=== PATIENT | male | born 1945 | race Caucasian/White ===

== ENCOUNTER 2018-02-09 08:27 | Emergency (ER) | payer OTHER ==
[2018-02-09 08:47] VITALS: BMI 29.9
--- NOTE | 2018-02-09 09:15 | PDOC ---
Attending Attestation - Physicial Exam PE: 02/09/18 11:02 GENERAL: The patient is awake, alert, and fully oriented, Nontoxic - in no acute distress. HEAD: Normocephalic, atraumatic. EYES: Extraocular movements intact, sclera anicteric, conjunctiva clear. ENT: Normal voice, moist mucous membranes. NECK: Normal range of motion, supple without lymphadenopathy, JVD, or masses. LUNGS: Breath sounds equal, clear to auscultation bilaterally. No wheezes, no crackles, no rales. HEART: Regular rate and rhythm, normal S1 and S2 without murmur, rub or gallop. ABDOMEN: Soft, nontender, normoactive bowel sounds. No guarding, no rebound. No masses. EXTREMITIES: Normal range of motion, no edema. No clubbing or cyanosis. No cords , erythema, or tenderness. NEUROLOGICAL: Fully Oriented, Alert, Normal Mood/Affect, Motor Strength 5/5. No facial asymmetry, Normal speech. SKIN: Warm, Dry, normal turgor, no rashes or lesions noted. - Medical Decision Making 02/09/18 11:03 Documentation prepared by Nancy Davey, acting as medical detail representative for Farida Gannon MD <Nancy Davey - Last Filed: 02/09/18 11:02> - Resident Resident Name: Harry Bolanos - HPI HPI: 02/09/18 10:58 72 y/o male with h/o afib called into ed for elevated INR, pt with no current complaints, pt takes coumadin 2.5mg alternating with 1.25mg. Pt last dose was 1.25mg taken at 12 noon yesterday. PT denies any c/o rectal bleeding, bruising, pt anxious to go home 02/09/18 11:00 02/09/18 14:02 - Physicial Exam PE: 02/09/18 11:01 Last Vital Signs Temp Pulse Resp BP Pulse Ox 98.2 F 72 17 123/73 98 02/09/18 10:41 02/09/18 10:41 02/09/18 10:41 02/09/18 10:41 02/09/18 10:41 - Medical Decision Making 02/09/18 11:03 Pt had repeat INR remains elevated, will hold INR dose until Sunday. Pt o call PCP on sunday and have INR rechecked before resuming dose.PT's coumadin dose may need to be adjusted , pt reports recent weight loss and feels like the dose is to high. Dr. Nathan covering for pt's pcp agrees with plan to hold coumadin dose or now, will not reverse. PT is aware to return to ed for rectal bleeding, hematuria, hempotysis or as needed. Pt left ed in stable condition <Farida Gannon - Last Filed: 02/09/18 14:02>
[2018-02-09 09:46] LABS: BASO % 0.9 % (0-2.0); EOS % 1.7 % (0-4.5); HEMATOCRIT 34.6 % (35.4-49); HEMOGLOBIN 11.4 GM/dL (11.7-16.9); LYMPH % 17.7 % (8-40); MCH 28.7 pg (25.7-33.7); MCHC 32.8 g/dl (32.0-35.9); MEAN CELL VOLUME 87.3 fl (80-96); MEAN PLT VOLUME 7.8 fl (7.5-11.1); MONO % 7.4 % (3.8-10.2); NEUT % 72.3 % (42.8-82.8); PLATELET COUNT 296 K/MM3 (134-434); RBC 3.96 M/mm3 (4.00-5.60); RDW 14.6 % (11.9-15.9); WHITE BLOOD COUNT 6.4 K/mm3 (4.0-10.0)
--- NOTE | 2018-02-09 09:56 | PDOC ---
History of Present Illness - General Chief Complaint: Revisit,Radiology Variance Stated Complaint: PCP SENT Time Seen by Provider: 02/09/18 09:10 History Source: Patient Exam Limitations: No Limitations - History of Present Illness Initial Comments: 02/09/18 09:48 Patient is a 72M with history of afib, DM here today complaining of lab variance. He reports that his INR was 6.4. His last dose of warfarin was yesterday at lunch, he has not taken any today. He denies bloody stools, melena , vomiting, bloody stools. He denies chest pain, shortness of breath, nausea, fevers, chills. He states he has been eating a little less lately and thinks that may be why his levels are elevated. Past History - Past Medical History Allergies/Adverse Reactions: Allergies Allergy/AdvReac Type Severity Reaction Status Date / Time No Known Allergies Allergy Verified 02/09/18 08:47 Home Medications: Ambulatory Orders Dronedarone HCl [Multaq -] 400 mg PO BID 02/09/18 Fenofibrate Nanocrystallized [Tricor] 145 mg PO DAILY 02/09/18 Glimepiride 1 mg PO DAILY 02/09/18 Levothyroxine [Synthroid -] 175 mcg PO DAILY 02/09/18 Lisinopril 10 mg PO DAILY 02/09/18 Warfarin Na [Coumadin] 2.5 mg PO ASDIR 02/09/18 Warfarin Sodium 1.5 mg PO ASDIR 02/09/18 Cancer: Yes (thyroid) Cardiac Disorders: Yes (a fib) COPD: No Diabetes: No HTN: Yes - Suicide/Smoking/Psychosocial Hx Smoking History: Never smoked Review of Systems - Review of Systems Comments:: 02/09/18 09:56 GENERAL/CONSTITUTIONAL: No fever or chills. No weakness. HEAD, EYES, EARS, NOSE AND THROAT: No change in vision. No sore throat. CARDIOVASCULAR: No chest pain or shortness of breath RESPIRATORY: No cough, wheezing, or hemoptysis. GASTROINTESTINAL: No nausea, vomiting, diarrhea or constipation. GENITOURINARY: No dysuria, frequency, or change in urination. SKIN: No rash NEUROLOGIC: No headache, vertigo, loss of consciousness, or change in strength/ sensation. HEMATOLOGIC/LYMPHATIC: No anemia, easy bleeding, or history of blood clots. ALLERGIC/IMMUNOLOGIC: No hives or skin allergy. *Physical Exam - Vital Signs Last Vital Signs Temp Pulse Resp BP Pulse Ox 97.7 F 89 18 114/59 99 02/09/18 08:43 02/09/18 08:43 02/09/18 08:43 02/09/18 08:43 02/09/18 08:43 - Physical Exam Comments: 02/09/18 09:57 GENERAL: Awake, alert, and fully oriented, in no acute distress HEAD: No signs of trauma, normocephalic, atraumatic EYES: PERRLA, EOMI, sclera anicteric, conjunctiva clear ENT: Auricles normal inspection, hearing grossly normal, nares patent, oropharynx clear without exudates. Moist mucosa NECK: Normal ROM, supple, no lymphadenopathy, JVD, or masses LUNGS: No distress, speaks full sentences, clear to auscultation bilaterally HEART: Regular rate and rhythm, normal S1 and S2, no murmurs, rubs or gallops, peripheral pulses normal and equal bilaterally. ABDOMEN: Soft, nontender, normoactive bowel sounds. No guarding, no rebound. No masses EXTREMITIES: Normal inspection, Normal range of motion, no edema. No clubbing or cyanosis. NEUROLOGICAL: Cranial nerves II through XII grossly intact. Normal speech, normal gait, no focal sensorimotor deficits SKIN: Warm, Dry, normal turgor, no rashes or lesions noted. ED Treatment Course - LABORATORY CBC & Chemistry Diagram: 02/09/18 09:10 02/09/18 09:10 Medical Decision Making - Medical Decision Making 02/09/18 09:58 Patient is a 72M with history of afib and DM here today with elevated INR. Vital signs stable and normal. Will check INR, CBC, CMP. Likely will instruct patient to withhold next 2 warfarin doses and follow up with PCP. 02/09/18 10:23 Laboratory Tests 02/09/18 02/09/18 02/09/18 09:10 09:10 09:10 WBC 6.4 Hgb 11.4 L Hct 34.6 L Plt Count 296 INR 6.14 H* Creatinine 1.8 H Random Glucose 232 H CBC normal. INR elevated to 6.14, Cr 1.8. Glucose elevated. Do not have prior Cr to compare. Suspect this is chronic, patient does not appear dry. INR is 5-[address] Nathan from PCP's office notified of INR and CR levels. Agrees with plans to discharge with instructions to hold warfarin for next two days. Will follow up Sunday with Dr David. *DC/Admit/Observation/Transfer Diagnosis at time of Disposition: Elevated INR - Discharge Dispostion Disposition: HOME Condition at time of disposition: Good Admit: No - Referrals Referrals: Luis Felipe David MD [Primary Care Provider] - - Patient Instructions Additional Instructions: Your INR was elevated to 6.14 today. Please do not take your warfarin today and tomorrow and call Dr David to follow up. Please return if you have any new, worsening or concerning symptoms, especially any signs that you are bleeding such as blood in your stool or vomit. - Post Discharge Activity
[2018-02-09 10:06] LABS: PROTHROMBIN TIME (PATIENT) 69.4 SEC (9.98-11.88)
[2018-02-09 10:12] LABS: ANION GAP 12 (8-16); BILIRUBIN,TOTAL 0.7 mg/dL (0.2-1.0); BLOOD UREA NITROGEN 15 mg/dL (7-18); CALCIUM 7.9 mg/dL (8.5-10.1); CHLORIDE 107 mmol/L (98-107); CO2 22 mmol/L (21-32); CREATININE 1.8 mg/dL (0.7-1.3); GLUCOSE,RANDOM 232 mg/dL (74-106); POTASSIUM 4.1 mmol/L (3.5-5.1); SGOT/AST 13 U/L (15-37); SGPT/ALT 12 U/L (12-78); SODIUM 141 mmol/L (136-145); TOT PROT 6.4 g/dl (6.4-8.2)
[2018-02-09 10:13] LABS: ALK PHOS 71 U/L (45-117)
[2018-02-09 10:17] LABS: INR 6.14 (0.82-1.09)
[2018-02-09 10:43] VITALS: BP 123/73; PULSE 72; TEMP 98.2
== END 2018-02-09 10:42 | disposition home or self-care (01) ==
LOC: JER 08:27
DX: D68.8 Other specified coagulation defects (principal); I48.91 Unspecified atrial fibrillation; Z79.01 Long term (current) use of anticoagulants; E11.9 Type 2 diabetes mellitus without complications; Z79.84 Long term (current) use of oral hypoglycemic drugs; I10 Essential (primary) hypertension; Z85.850 Personal history of malignant neoplasm of thyroid
CPT/HCPCS: 36415; 80053; 85025; 85610; 99282-25

== ENCOUNTER 2020-09-01 07:34 | Emergency (ER) | payer OTHER ==
--- OUTSIDE RECORDS SUMMARY | 2020-09-01 07:51 | XMS ---
:1945 Author Organization [facility] Support Name Relationship Address Phone RE Unavailable Unavailable Unavailable [employer] [address] [place] [address] Re-disclosure Warning The records that you are about to access may contain information from federally- assisted alcohol or drug abuse programs. If such information is present, then the following federally mandated warning applies: This information has been disclosed to you from records protected by federal confidentiality rules (42 CFR part 2). The federal rules prohibit you from making any further disclosure of this information unless further disclosure is expressly permitted by the written consent of the person to whom it pertains or as otherwise permitted by 42 CFR part 2. A general authorization for the release of medical or other information is NOT sufficient for this purpose. The Federal rules restrict any use of the information to criminally investigate or prosecute any alcohol or drug abuse patient.The records that you are about to access may contain highly sensitive health information, the redisclosure of which is protected by Article 27-F of the [facility] Public Health law. If you continue you may haveaccess to information: Regarding HIV / AIDS; Provided by facilities licensed or operated by the [facility] Office of Mental Health; or Provided by the [facility] Office for People With Developmental Disabilities. If such information is present, then the following [facility] mandated warning applies: This information has been disclosed to you from confidential records which are protected by state law. State law prohibits you from making any further disclosure of this information without the specific written consent of the person to whom it pertains, or as otherwise permitted by law. Any unauthorized further disclosure in violation of state law may result in a fine or nursing home sentence or both. A general authorization for the release of medical or other information is NOT sufficient authorization for further disclosure. Insurance Providers Payer name Policy type Policy ID Covered Covered republican's Policy P ellie / Coverage republican ID relationship to [facility] ormation type cook [place] [id number] [facility] (MEDICARE)
[2020-09-01 07:57] VITALS: TEMP 97.9; BMI 30.6
[2020-09-01] MEDS ORDERED: ACETAMINOPHEN 500 MG TABLET (FP) PO ONE (08:38)
[2020-09-01] MEDS ORDERED: ACETAMINOPHEN 500 MG TABLET (FP) ONE (08:51)
--- NOTE | 2020-09-01 09:13 | PDOC ---
Documentation entered by Stepan Rodriguez SCRIBE, acting as scribe for Sathya Guardado MD. Sathya Guardado MD: This documentation has been prepared by the Michael sidhu Alexis, SCRIBE, under my direction and personally reviewed by me in its entirety. I confirm that the documentation accurately reflects all work, treatment, procedures, and medical decision making performed by me. History of Present Illness - General Chief Complaint: Injury Stated Complaint: KNEE PAIN Time Seen by Provider: 09/01/20 07:55 History Source: Patient Exam Limitations: No Limitations - History of Present Illness Initial Comments: 09/01/20 08:40 The patient is a 75 year old male with a significant past medical history of Afib (on coumadin, last INR: 2.1, 2 weeks ago), prior thyroid cancer, DM, HTN, and left lower extremity lymphedema who presents to the emergency department for evaluation of left knee pain and swelling. The patient reports that he may have twisted his knee when he sat down in a chair yesterday. He reports a sharp pulling pain in his knee associated with swelling that started yesterday. He notes chronic pain in his L knee. Was told he had severe arthritis and needed a knee replacement. However, the pain acutely worsened yesterday. Pt states that he fell yesterday because of the pain in his knee. Denies headstrike/LOC. States he landed on the couch with his arms outstretched. He reports having to crawl to get to bed after falling. Pt has been ambulatory with walker today. Deines head/neck trauma. Denies LOC. The patient denies chest/abdominal/back pain, cough, and shortness of breath. Denies fever, chills, nausea, vomiting, and/or any GI symptoms. Denies any symptoms. Denies any other symptoms. Allergies: house dust, mold, tree and shrub Social Hx: None reported Surgical Hx: None reported PCP: Dr. David Ortho: Dr. Tarango Cardio: Dr. Hutchison Past History - Medical History Allergies/Adverse Reactions: Allergies Allergy/AdvReac Type Severity Reaction Status Date / Time house dust Allergy Mild Itching Verified 09/01/20 07:50 mold Allergy Mild Itching Verified 09/01/20 07:50 tree and shrub pollen Allergy Mild Itching Verified 09/01/20 07:50 Home Medications: Ambulatory Orders Dronedarone HCl [Multaq -] 400 mg PO BID 02/09/18 Fenofibrate Nanocrystallized [Tricor] 145 mg PO DAILY 02/09/18 Glimepiride 1 mg PO DAILY 02/09/18 Levothyroxine [Synthroid -] 175 mcg PO DAILY 02/09/18 Lisinopril 10 mg PO DAILY 02/09/18 Warfarin Na [Coumadin] 2.5 mg PO ASDIR 02/09/18 Warfarin Sodium 1.5 mg PO ASDIR 02/09/18 Cancer: Yes (thyroid) Cardiac Disorders: Yes (a fib) COPD: No Diabetes: Yes HTN: Yes - Psycho-Social/Smoking History Smoking History: Never smoked Have you smoked in the past 12 months: No Information on smoking cessation initiated: No - Substance Abuse Hx (Audit-C & DAST Scrn) How often the patient has a drink containing alcohol: Never Score: In Men: 4 or > Positive; In Women: 3 or > Positive: 0 Screen Result (Pos requires Nsg. Audit-10AR): Negative In the last yr the pt used illegal drug/Rx for NonMed reason: No Score: Yes response is considered Positive: 0 Screen Result (Positive result requires Nsg. DAST-10): Negative Review of Systems - Review of Systems Able to Perform ROS?: Yes Comments:: 09/01/20 08:41 "GENERAL/CONSTITUTIONAL: No fever or chills. No weakness. HEAD, EYES, EARS, NOSE AND THROAT: No change in vision. No ear pain or discharge. No sore throat. CARDIOVASCULAR: No chest pain, no shortness of breath, no loss of consciousness RESPIRATORY: No cough, wheezing, or hemoptysis. GASTROINTESTINAL: No nausea, vomiting, diarrhea or constipation. GENITOURINARY: No dysuria, frequency, or change in urination. MUSCULOSKELETAL: +left knee pain and swelling. No muscle swelling or pain. No neck or back pain. SKIN: No rash NEUROLOGIC: No vertigo, no change in strength/sensation. ENDOCRINE: No increased thirst. No abnormal weight change. HEMATOLOGIC/LYMPHATIC: No anemia, easy bleeding, or history of blood clots. ALLERGIC/IMMUNOLOGIC: No hives or skin allergy." All Other Systems: Reviewed and Negative *Physical Exam - Vital Signs Last Vital Signs Temp Pulse Resp BP Pulse Ox 97.9 F 82 16 139/76 100 09/01/20 07:35 09/01/20 07:35 09/01/20 07:35 09/01/20 07:35 09/01/20 07:35 - Physical Exam 09/01/20 08:00 "GENERAL: Awake, alert, and fully oriented, in no acute distress. HEAD: No signs of trauma EYES: PERRLA, EOMI, sclera anicteric, conjunctiva clear ENT: Auricles normal inspection, hearing grossly normal, nares patent, oropharynx clear without exudates. Moist mucosa NECK: Nontender, no stepoffs, Normal ROM, supple, no lymphadenopathy, JVD, or masses LUNGS: Breath sounds equal, clear to auscultation bilaterally. No wheezes, and no crackles HEART: Regular rate and rhythm, normal S1 and S2, no murmurs, rubs or gallops ABDOMEN: Soft, nontender, normoactive bowel sounds. No guarding, no rebound. No masses EXTREMITIES: + L knee with effusion, no discoloration, full ROM NEUROLOGICAL: Cranial nerves II through XII intact. 5/5 strength and sensation in all extremities, Normal speech, normal gait, normal cerebellar function SKIN: Warm, Dry, normal turgor, no rashes or lesions noted." Medical Decision Making - Medical Decision Making 09/01/20 09:16 75 M with atraumatic L knee pain and swelling. Suspect arthritis vs bursitis vs gout/pseudogout. Less likely septic arthritis as pt with no infectious symptoms. Also consider hemarthrosis as pt is on coumadin. - INR - XR - arthrocentesis 09/01/20 10:14 XR unremarkable other than OA and suprapatellar effusion Attempted arthrocentesis x 2 unsuccessfully Pt reports some improvement with tylenol Likely arthritis/bursitis. INR in normal range, unlikely hemarthrosis. Will give 1 dose decadron IM and reassess 09/01/20 11:41 Pt reassessed - pain much improved. Pt able to ambulate without issue. Pt is well appearing, with normal vitals. Clinically stable for DC at this time. I discussed the physical exam findings, ancillary test results and final diagno ses with the patient. I answered all of the patient's questions. The patient was satisfied with the care received and felt comfortable with the discharge plan and treatment plan. The patient agrees to follow up with the primary care physician within 24-72 hours. Discharge - Discharge Information Problems reviewed: Yes Clinical Impression/Diagnosis: Knee pain - Follow up/Referral Referrals: Luis Felipe David MD [Primary Care Provider] - Sen Avila DO [Staff Physician] - Teodoro Hernandez DO [Staff Physician] - Alvin Tarango MD [Staff Physician] - Sathya Levi MD [Staff Physician] - - Patient Discharge Instructions Patient Printed Discharge Instructions: DI for Knee Pain Additional Instructions: Follow up with an orthopedic surgeon within 1 week. Call the numbers provided to make an appointment. Keep your knee elevated and avoid weight bearing when possible. Apply ice to reduce swelling. If you experience worsening pain, swelling, redness, fevers, or any other concerning symptoms, return to the ER immediately. - Post Discharge Activity
[2020-09-01 09:28] LABS: INR 2.44 (0.83-1.09)
[2020-09-01] MEDS ORDERED: LIDOCAINE HCL 1%, 10 MG/ML (50 mL VIAL) SQ ONE (09:43)
[2020-09-01] MEDS ORDERED: DEXAMETHASONE SOD PHOSPHATE 10 MG/1 ML VIAL IM ONE (10:15)
[2020-09-01] MEDS ORDERED: DEXAMETHASONE SOD PHOSPHATE 10 MG/1 ML VIAL ONE (10:25)
[2020-09-01 12:03] VITALS: BP 133/75; PULSE 79
== END 2020-09-01 12:02 | disposition home or self-care (01) ==
LOC: JER 07:34
PROC: 3E023NZ Introduction of Analgesics, Hypnotics, Sedatives into Muscle, Percutaneous Approach (ICD-10-PCS; principal; 2020-09-01)
DX: M25.562 Pain in left knee (principal)
CPT/HCPCS: 36415; 73562-TC-LT-FY; 85610; 99285-25; J1100

== ENCOUNTER 2020-09-08 02:23 | Emergency (ER) | payer OTHER ==
--- NOTE | 2020-09-08 02:35 | PDOC ---
Attending Attestation - Resident Resident Name: Joshua Ocampo - ED Attending Attestation I have performed the following: I have examined & evaluated the patient, The case was reviewed & discussed with the resident, I agree w/resident's findings & plan - HPI HPI: 09/08/20 02:35 see resident hpi - Physicial Exam PE: 09/08/20 02:35 see resident exam - Medical Decision Making 09/08/20 02:49 Patient status post fall 1 week ago complaining of pain bruising and swelling to the left lower extremity Previous INR was therapeutic on ED visit 1 week ago Plan for CTA of the lower extremity to rule out vascular injury Basic labs including repeat INR Due to anticoagulation and patient's age we will CT head as well Discharge - Discharge Information Problems reviewed: Yes Clinical Impression/Diagnosis: Hematoma - Follow up/Referral Referrals: Luis Felipe David MD [Primary Care Provider] - - Patient Discharge Instructions - Post Discharge Activity
--- NOTE | 2020-09-08 02:36 | PDOC ---
History of Present Illness - General Stated Complaint: LEG PAIN Time Seen by Provider: 09/08/20 02:34 - History of Present Illness Initial Comments: HPI: 09/08/20 02:35 75 yo M PMH HTN, DM, Afib on Coumadin, prior thyroid cancer, and left lower extremity lymphedema, presenting with L calf pain. Notably, was here last week with L knee pain after a twisting incident. Reports that over the past two days, has had increasing pain and swelling in L calf, up into L knee. Notes that his INR was checked two days ago and was 2.8 at that time. Allergies: house dust, mold, tree and shrub PCP: Dr. David Ortho: Dr. Tarango Cardio: Dr. Hutchison ROS: GENERAL/CONSTITUTIONAL: denies fever, chills, diaphoresis HEAD, EYES, EARS, NOSE AND THROAT: denies rhinorrhea, nasal congestion NEUROLOGIC: denies headache, dizziness, mental status changes CARDIOVASCULAR: denies chest pain, syncope, palpitations,lightheadedness RESPIRATORY: denies cough, shortness of breath, dyspnea with exertion GASTROINTESTINAL: denies abdominal pain, abdominal distension, nausea, vomiting, diarrhea, constipation GENITOURINARY: denies dysuria, frequency, urgency MUSCULOSKELETAL: endorses L calf and L knee pain SKIN: denies rash, itching PE: Gen: well-developed, well-nourished, NAD Neuro: AAOX4, CN II-XII intact HEENT: atraumatic, normocephalic Neck: trachea midline, supple CV: regular rate, regular rhythm, no murmurs, rubs, or gallops Pulm: CTA b/l, no wheezing Abd: soft, non-distended, non-tender MSK: soft but distended L calf, bruising up leg to near groin, tender to palpation. No tenderness in knee Extr: no edema, no deformities Skin: warm, dry MDM: Concern for large hematoma from groin down the leg. - CBC, CMP - PT/PTT - CTA lower extremity 09/08/20 04:02 INR 3.29. Cr 2. Hgb 8.5. Explained risks and benefits of contrast study to patient. Mr. Wen expresses his understanding and consents to the contrast study. Will get CTA. 09/08/20 05:25 CT head: Involutional changes. No acute intracranial abnormality. No hemorrhage. Osseous structures are intact. 09/08/20 05:48 CTA abd/pelvis CTA with BLE run-off: The abdominal aorta and the iliac vessels are patent. Bilateral ectatic common iliac arteries measuring 1.6 cm on the right and 2.3 cm on the left. Atherosclerotic changes noted of the aortoiliac vessels. Major visceral vessels emanating from the abdominal aorta are patent. No bowel obstruction or inflammation. Colonic diverticulosis. No diverticulitis or colitis. Cholelithiasis noted. Enlarged prostate with calcifications noted. Right lower extremity: The right common femoral artery, superficial femoral artery, the popliteal artery are all patent. The peroneal artery and posterior tibial arteries are patent. The anterior tibial artery is patent but its extension into the dorsalis pedis is poorly opacified. Check for dorsalis pedis pulses (it could be that the contrast bolus is poor in this area but the dorsalis pedis could be diseased) Left lower extremity: Left common femoral artery, left superficial femoral artery and left popliteal artery are patent. Three-vessel runoff is observed. POSITIVE for an acute vertical fracture of the medial cortex of the left medial tibial plateau. There is also swelling of the vastus musculature of the lower thigh just superior to the knee. This could be due to edema and/or blood. There is also an elongated hematoma along the fascial planes of the medial left calf (between the muscle and the fascia/subcutaneous tissues). The hematoma measures 28 cm in craniocaudal dimension by approximately 5 cm in width. POSITIVE for a blush of contrast extravasation within the midportion of this hematoma indicating ACTIVE BLEEDING There is also a hemorrhagic joint effusion in the left knee Will give vitamin K and FFP. Patient informed of findings and importance of transfer, [facility]. Auto-accepted for transfer under ER Dr. Frank as of 1802. Awaiting call back. 09/08/20 06:15 Patient accepted for transfer under Dr. Frank. Patient will be trauma activation considering fracture with bleeding of unknown source. Ambulance will be here in about 20 minutes. 09/08/20 06:38 EKG normal sinus at 77 bpm, CT 176, QRS 92, QTc 492. Past History - Medical History Allergies/Adverse Reactions: Allergies Allergy/AdvReac Type Severity Reaction Status Date / Time house dust Allergy Mild Itching Verified 09/01/20 07:50 mold Allergy Mild Itching Verified 09/01/20 07:50 tree and shrub pollen Allergy Mild Itching Verified 09/01/20 07:50 Home Medications: Ambulatory Orders Dronedarone HCl [Multaq -] 400 mg PO BID 02/09/18 Fenofibrate Nanocrystallized [Tricor] 145 mg PO DAILY 02/09/18 Glimepiride 1 mg PO DAILY 02/09/18 Levothyroxine [Synthroid -] 175 mcg PO DAILY 02/09/18 Lisinopril 10 mg PO DAILY 02/09/18 Warfarin Na [Coumadin] 2.5 mg PO ASDIR 02/09/18 Warfarin Sodium 1.5 mg PO ASDIR 02/09/18 Cancer: Yes (thyroid) Cardiac Disorders: Yes (a fib) COPD: No Diabetes: Yes HTN: Yes - Psycho-Social/Smoking History Smoking History: Never smoked Have you smoked in the past 12 months: No ED Treatment Course - LABORATORY CBC & Chemistry Diagram: 09/08/20 03:04 09/08/20 03:04 Discharge - Discharge Information Problems reviewed: Yes Clinical Impression/Diagnosis: Hematoma, Bleeding, Elevated INR Condition: Guarded Disposition: TRANSFER ACUTE CARE/OTHER HOSP - Follow up/Referral Referrals: Luis Felipe David MD [Primary Care Provider] - - Patient Discharge Instructions - Post Discharge Activity
[2020-09-08 02:49] VITALS: BMI 27.5
--- OUTSIDE RECORDS SUMMARY | 2020-09-08 02:56 | XMS ---
:1945 [facility] Support Name Relationship Address Phone RE, RETIRED Unavailable Unavailable Unavailable RE Unavailable Unavailable Unavailable [address] [facility] [place] [address] [address] [employer] [address] Re-disclosure Warning The records that you are [...] is protected by Article 27-F of the [facility] Public Health law. If you continue you may haveaccess to information: Regarding HIV / AIDS; Provided by facilities licensed or operated by the [facility] Office of Mental Health; or Provided by the [facility] Office for People With Developmental Disabilities. If such information is present, then the following [facility] mandated warning applies: This information has been [...] law may result in a fine or mcc sentence or both. A general authorization for the release of medical or other information is NOT sufficient authorization for further disclosure. Insurance Providers Payer name Policy type Policy ID Covered Covered libertarian's Policy P ellie / Coverage libertarian ID relationship to Cook Inf ormation type cook [place] [place] [id number] [facility] (MEDICARE)
[2020-09-08 03:26] LABS: BASO % 0.4 % (0-2.0); EOS % 1.5 % (0-4.5); HEMATOCRIT 26.7 % (35.4-49); HEMOGLOBIN 8.5 GM/dL (11.7-16.9); LYMPH % 18.4 % (8-40); MCH 27.7 pg (25.7-33.7); MCHC 31.9 g/dl (32.0-35.9); MEAN CELL VOLUME 86.8 fl (80-96); MEAN PLT VOLUME 8.2 fl (7.5-11.1); MONO % 9.5 % (3.8-10.2); NEUT % 70.2 % (42.8-82.8); PLATELET COUNT 308 K/MM3 (134-434); RBC 3.07 M/mm3 (4.00-5.60); WHITE BLOOD COUNT 8.9 K/mm3 (4.0-10.0)
[2020-09-08 03:47] LABS: INR 3.29 (0.83-1.09); PROTHROMBIN TIME (PATIENT) 39.1 SEC (9.7-13.0)
[2020-09-08 03:50] LABS: ACTIVATED PTT 38.4 SECONDS (25.2-36.5)
[2020-09-08 03:56] LABS: POTASSIUM 4.4 mmol/L (3.5-5.1)
[2020-09-08 03:58] LABS: BLOOD UREA NITROGEN 32.3 mg/dL (7-18)
[2020-09-08 04:03] LABS: BILIRUBIN,TOTAL 1.6 mg/dL (0.2-1); TOT PROT 5.8 g/dl (6.4-8.2)
[2020-09-08] MEDS ORDERED: PHYTONADIONE 10 MG/1 ML AMP IVPB ONE (05:56)
[2020-09-08] MEDS ORDERED: PHYTONADIONE 10 MG/1 ML AMP ONE (06:06)
[2020-09-08 06:38] VITALS: BP 148/74; PULSE 77; TEMP 98
--- NOTE | 2020-09-08 12:49 | EKG ---
Test Reason : Blood Pressure : / mmHG Vent. Rate : 077 BPM Atrial Rate : 077 BPM P-R Int : 176 ms QRS Dur : 092 ms QT Int : 436 ms P-R-T Axes : 065 023 028 degrees QTc Int : 493 ms NORMAL SINUS RHYTHM PROLONGED QT NONSPECIFIC ST ABNORMALITY ABNORMAL ECG Confirmed by MD TONG, MAVIS ([id number]) on 09/08/2020 12:49:12 PM Referred By: Confirmed By:MAVIS FORTUNE MD
== END 2020-09-08 06:59 | disposition short-term general hospital (02) ==
LOC: JER 02:23
PROC: 3E033NZ Introduction of Analgesics, Hypnotics, Sedatives into Peripheral Vein, Percutaneous Approach (ICD-10-PCS; principal; 2020-09-08)
DX: S80.12XA Contusion of left lower leg, initial encounter (principal); R79.1 Abnormal coagulation profile
CPT/HCPCS: 36415; 70450-TC; 75635-TC; 80053; 85025; 85610; 85730; 86850; 86900; 86901; 93005; 93010; 99285-25

== ENCOUNTER 2023-11-16 19:56 | Inpatient (IN) | payer OTHER ==
[2023-11-16 20:50] VITALS: BMI 27.5
[2023-11-16 21:21] LABS: BASO % 0.4 % (0-2.0); EOS % 0.7 % (0-4.5); HEMATOCRIT 32.8 % (35.4-49); HEMOGLOBIN 10.4 GM/dL (11.7-16.9); LYMPH % 7.7 % (8-40); MCH 27.2 pg (25.7-33.7); MCHC 31.9 g/dl (32.0-35.9); MEAN CELL VOLUME 85.4 fl (80-96); MEAN PLT VOLUME 8.6 fl (7.5-11.1); MONO % 9.1 % (3.8-10.2); NEUT % 82.1 % (42.8-82.8); PLATELET COUNT 275 10^3/uL (134-434); RBC 3.84 M/mm3 (4.00-5.60); RDW 15.3 % (11.9-15.9); WHITE BLOOD COUNT 11.6 K/mm3 (4.0-10.0)
[2023-11-16 21:47] LABS: POTASSIUM 4.6 mmol/L (3.5-5.1)
[2023-11-16 21:50] LABS: ALBUMIN 3.2 g/dl (3.4-5.0); CALCIUM 9.1 mg/dL (8.5-10.1)
[2023-11-16 21:51] LABS: BLOOD UREA NITROGEN 27.6 mg/dL (7-18)
[2023-11-16 21:53] LABS: CREATININE 2.2 mg/dL (0.55-1.3)
[2023-11-16 21:55] LABS: BILIRUBIN,TOTAL 0.8 mg/dL (0.2-1)
[2023-11-16 21:59] LABS: TOT PROT 6.4 g/dl (6.4-8.2)
[2023-11-16] MEDS ORDERED: SODIUM CHLORIDE 0.9% 500 ML INFUS.BAG IV ONE (22:44)
[2023-11-17 00:47] LABS: EPI CELLS 29 /uL (0-25.1); HYALINE CASTS 10 /uL (0-3.1); PH,URINE 5.5 (5.0-8.0); URINE APPEARANCE CLOUDY; URINE BACTERIA 0 /uL (0-1359); URINE BILIRUBIN 1+ (NEGATIVE); URINE COLOR DK YELLOW; URINE GLUCOSE (UA) NEGATIVE (NEGATIVE); URINE KETONE TRACE (NEGATIVE); URINE LEUK ESTERASE 2+ (NEGATIVE); URINE NITRITE NEGATIVE (NEGATIVE); URINE PROTEIN 1+ (NEGATIVE); URINE RBC 560 /uL (0-23.9); URINE WBC 307 /uL (0-25.8)
[2023-11-17 04:59] LABS: INR 1.9 (0.83-1.09); PROTHROMBIN TIME (PATIENT) 21.9 SEC (9.7-13.0)
[2023-11-17 05:02] LABS: ACTIVATED PTT 31.3 SECONDS (25.2-36.5)
[2023-11-17] MEDS ORDERED: CEFTRIAXONE 1,000 MG in DEXTROSE 5%-WATER - 50 ML IVPB ONE (05:02)
[2023-11-17] MEDS ORDERED: ACETAMINOPHEN 1000 MG/100 ML BAG IVPB PRN ×2 (05:36→06:03)
[2023-11-17] MEDS ORDERED: ACETAMINOPHEN 1000 MG/100 ML BAG IVPB ONE (05:37)
[2023-11-17] MEDS ORDERED: ACETAMINOPHEN INJECTION 100 ML IVPB ONE (06:47)
[2023-11-17] MEDS ORDERED: CEFTRIAXONE 1 GM/50 ML BAG ONE (06:47)
[2023-11-17 07:55] LABS: URINE CRYSTALS FEW /hpf
[2023-11-17 08:15] LABS: POTASSIUM 4.5 mmol/L (3.5-5.1)
[2023-11-17 08:18] LABS: BASO % 0.3 % (0-2.0); HEMATOCRIT 31.5 % (35.4-49); HEMOGLOBIN 10.3 GM/dL (11.7-16.9); LYMPH % 7.5 % (8-40); MCHC 32.6 g/dl (32.0-35.9); MEAN CELL VOLUME 85.9 fl (80-96); MEAN PLT VOLUME 8.8 fl (7.5-11.1); MONO % 7.5 % (3.8-10.2); NEUT % 84.7 % (42.8-82.8); PLATELET COUNT 305 10^3/uL (134-434); RBC 3.67 M/mm3 (4.00-5.60); WHITE BLOOD COUNT 11.2 K/mm3 (4.0-10.0)
[2023-11-17 08:20] LABS: CALCIUM 8.9 mg/dL (8.5-10.1)
[2023-11-17 08:21] LABS: ALBUMIN 3.2 g/dl (3.4-5.0); MAGNESIUM 1.7 mg/dL (1.8-2.4)
[2023-11-17] MEDS: INSULIN SLIDING SCALE (NOVOLOG) 1 VIAL SQ SCH ×4 (08:23→21:39)
[2023-11-17 08:25] LABS: BILIRUBIN,TOTAL 0.9 mg/dL (0.2-1); CREATININE 2.1 mg/dL (0.55-1.3); PHOSPHOROUS 2.9 mg/dL (2.5-4.9); TOT PROT 6.6 g/dl (6.4-8.2)
[2023-11-17] MEDS: SODIUM CHLORIDE 1,000 ML IV SCH (08:31)
[2023-11-17] MEDS ORDERED: PATIENT'S OWN MEDICATION (NON-FORMULARY) (Levothyroxine [Synthroid -] 175 MCG Tablet) PO SCH (10:00)
[2023-11-17] MEDS: APIXABAN 5 MG TABLET PO SCH ×2 (10:35→23:11)
[2023-11-17] MEDS: DRONEDARONE HCL 400 MG TAB (FP) PO SCH ×2 (10:35→23:11)
[2023-11-17] MEDS: LEVOTHYROXINE 100 MCG, LEVOTHYROXINE 75 MCG PO SCH (10:36)
[2023-11-17] MEDS: LISINOPRIL 5 MG TABLET PO SCH (10:36)
[2023-11-17] MEDS: FENOFIBRIC ACID 135 MG CAP PO SCH (10:36)
[2023-11-17 23:19] VITALS: RESP 18
[2023-11-18] MEDS: SODIUM CHLORIDE 1,000 ML IV SCH (05:49)
[2023-11-18] MEDS: LEVOTHYROXINE 100 MCG, LEVOTHYROXINE 75 MCG PO SCH (06:04)
[2023-11-18] MEDS: INSULIN SLIDING SCALE (NOVOLOG) 1 VIAL SQ SCH ×2 (06:04→10:49)
[2023-11-18 06:40] VITALS: BP 113/61; PULSE 78; TEMP 97.4
[2023-11-18] MEDS ORDERED: ENOXAPARIN NA (PORCINE) 100 MG/1 ML DISP.SYRIN SQ SCH (08:30)
[2023-11-18] MEDS: DRONEDARONE HCL 400 MG TAB (FP) PO SCH (09:40)
[2023-11-18] MEDS: LISINOPRIL 5 MG TABLET PO SCH (09:40)
[2023-11-18] MEDS: FENOFIBRIC ACID 135 MG CAP PO SCH (09:40)
[2023-11-18 09:47] LABS: BASO % 0.5 % (0-2.0); EOS % 1.8 % (0-4.5); HEMATOCRIT 29.2 % (35.4-49); HEMOGLOBIN 9.7 GM/dL (11.7-16.9); LYMPH % 22.3 % (8-40); MCH 28.4 pg (25.7-33.7); MCHC 33.2 g/dl (32.0-35.9); MEAN CELL VOLUME 85.5 fl (80-96); MEAN PLT VOLUME 8.1 fl (7.5-11.1); MONO % 8.8 % (3.8-10.2); NEUT % 66.6 % (42.8-82.8); PLATELET COUNT 234 10^3/uL (134-434); RBC 3.42 M/mm3 (4.00-5.60); RDW 15.2 % (11.9-15.9); WHITE BLOOD COUNT 6.3 K/mm3 (4.0-10.0)
[2023-11-18] MEDS ORDERED: LEVOTHYROXINE SODIUM 100 MCG 5 ML VIAL IVPUSH SCH (10:00)
[2023-11-18 11:37] LABS: POTASSIUM 4.3 mmol/L (3.5-5.1)
[2023-11-18 11:39] LABS: BLOOD UREA NITROGEN 32.3 mg/dL (7-18); CALCIUM 8.3 mg/dL (8.5-10.1)
[2023-11-18 11:42] LABS: CREATININE 1.5 mg/dL (0.55-1.3)
[2023-11-18 11:44] LABS: BILIRUBIN,TOTAL 0.6 mg/dL (0.2-1); TOT PROT 5.9 g/dl (6.4-8.2)
[2023-11-18] MEDS ORDERED: APIXABAN 5 MG TABLET PO SCH (22:00)
== END 2023-11-18 14:04 | disposition home or self-care (01) | DRG 390 ==
LOC: JER 19:56 → JERBED 11-17 03:34 → J5S 11-17 16:44
PROVIDERS: ADMIT Internal Medicine; ATTEND Internal Medicine
DX: K56.609 Unspecified intestinal obstruction, unspecified as to partial versus complete obstruction (principal); I12.9 Hypertensive chronic kidney disease with stage 1 through stage 4 chronic kidney disease, or unspecified chronic kidney disease; E11.22 Type 2 diabetes mellitus with diabetic chronic kidney disease; E89.0 Postprocedural hypothyroidism; D64.9 Anemia, unspecified; N18.9 Chronic kidney disease, unspecified; E78.5 Hyperlipidemia, unspecified; I48.91 Unspecified atrial fibrillation; R80.9 Proteinuria, unspecified; R35.1 Nocturia; N40.0 Benign prostatic hyperplasia without lower urinary tract symptoms; N20.0 Calculus of kidney
CPT/HCPCS: 36415; 71046-TC-FY; 74018-TC-FY; 74019-TC-FY; 74176-TC; 76775-TC; 80053; 81003; 82550; 82728; 82962; 83540; 83550; 83605; 83690; 83735; 84100; 84466; 84484; 85025; 85610; 85730; 86850; 86900; 86901; 87086; 93005; 93010; 99285-25

== ENCOUNTER 2024-03-31 09:44 | Emergency (ER) | payer OTHER ==
[2024-03-31 09:48] VITALS: BP 144/73; PULSE 92; RESP 19; TEMP 97.7; BMI 26.4
== END 2024-03-31 13:21 | disposition home or self-care (01) ==
LOC: FER 09:44
DX: M79.89 Other specified soft tissue disorders (principal)
CPT/HCPCS: 93971-TC; 99284-25

== ENCOUNTER 2024-06-14 14:16 | Observation (INO) | payer OTHER ==
[2024-06-14] MEDS ORDERED: ACETAMINOPHEN INJECTION 100 ML IVPB ONE (15:51)
[2024-06-14 15:55] LABS: BASO % 0.7 % (0-2.0); EOS % 0.4 % (0-4.5); HEMATOCRIT 29.1 % (35.4-49); HEMOGLOBIN 9.4 GM/dL (11.7-16.9); LYMPH % 15.3 % (8-40); MCH 25.9 pg (25.7-33.7); MCHC 32.2 g/dl (32.0-35.9); MEAN CELL VOLUME 80.5 fl (80-96); MEAN PLT VOLUME 8.2 fl (7.5-11.1); MONO % 8.3 % (3.8-10.2); NEUT % 75.3 % (42.8-82.8); PLATELET COUNT 258 10^3/uL (134-434); RBC 3.62 M/mm3 (4.00-5.60); RDW 16.3 % (11.9-15.9); WHITE BLOOD COUNT 9.2 K/mm3 (4.0-10.0)
[2024-06-14] MEDS: ACETAMINOPHEN 1000 MG/100 ML BAG IVPB ONE (15:55)
[2024-06-14 16:02] LABS: ACTIVATED PTT 22.9 SECONDS (25.2-36.5); INR 1.73 (0.83-1.09); PROTHROMBIN TIME (PATIENT) 19.2 SEC (9.7-13.0)
[2024-06-14 16:17] LABS: POTASSIUM 4.7 mmol/L (3.5-5.1)
[2024-06-14 16:19] LABS: ALBUMIN 3.1 g/dl (3.4-5.0); BLOOD UREA NITROGEN 27.7 mg/dL (7-18); CALCIUM 8.4 mg/dL (8.5-10.1)
[2024-06-14 16:22] LABS: CREATININE 1.8 mg/dL (0.55-1.3)
[2024-06-14 16:24] LABS: BILIRUBIN,TOTAL 0.6 mg/dL (0.2-1); TOT PROT 6.3 g/dl (6.4-8.2)
[2024-06-14 16:39] LABS: ERYTHROCYTE SEDIMENTATION RATE 13 mm/hr (0-20)
[2024-06-14] MEDS ORDERED: oxyCODONE HCL 5 MG TABLET ONE (17:06)
[2024-06-14] MEDS: oxyCODONE HCL 5 MG TABLET PO ONE (17:08)
[2024-06-14] MEDS ORDERED: POLYETHYLENE GLYCOL (HEALTHYLAX) 3350 17 GM PACKET ONE (21:53)
[2024-06-14] MEDS ORDERED: APIXABAN 2.5 MG TABLET ONE (21:53)
[2024-06-14] MEDS: INSULIN ASPART SLIDING SCALE (NOVOLOG) 1 VIAL SQ SCH (21:56)
[2024-06-14] MEDS: DRONEDARONE HCL 400 MG TAB (FP) PO SCH (22:13)
[2024-06-14] MEDS: APIXABAN 2.5 MG TABLET PO SCH (22:13)
[2024-06-14] MEDS: POLYETHYLENE GLYCOL (HEALTHYLAX) 3350 17 GM PACKET PO SCH (22:13)
[2024-06-14 22:19] LABS: EPI CELLS 11 /uL (0-25.1); HYALINE CASTS 1 /uL (0-3.1); URINE APPEARANCE CLEAR; URINE BACTERIA 11 /uL (0-1359); URINE BILIRUBIN NEGATIVE (NEGATIVE); URINE COLOR YELLOW; URINE GLUCOSE (UA) NEGATIVE (NEGATIVE); URINE KETONE TRACE (NEGATIVE); URINE LEUK ESTERASE TRACE (NEGATIVE); URINE NITRITE NEGATIVE (NEGATIVE); URINE PROTEIN NEGATIVE (NEGATIVE); URINE RBC 474 /uL (0-23.9); URINE WBC 47 /uL (0-25.8)
[2024-06-14 23:27] LABS: URINE CRYSTALS NONE SEEN /hpf
[2024-06-15] MEDS ORDERED: ACETAMINOPHEN 325 MG TABLET (FP) ONE ×2 (06:40→22:47)
[2024-06-15] MEDS ORDERED: oxyCODONE HCL 5 MG TABLET ONE (06:40)
[2024-06-15 06:46] LABS: BASO % 0.8 % (0-2.0); EOS % 0.7 % (0-4.5); HEMATOCRIT 29.5 % (35.4-49); HEMOGLOBIN 9.5 GM/dL (11.7-16.9); MCHC 32.1 g/dl (32.0-35.9); MEAN PLT VOLUME 8.3 fl (7.5-11.1); MONO % 9.8 % (3.8-10.2); NEUT % 71.7 % (42.8-82.8); PLATELET COUNT 252 10^3/uL (134-434); RBC 3.64 M/mm3 (4.00-5.60); RDW 15.9 % (11.9-15.9); WHITE BLOOD COUNT 8.5 K/mm3 (4.0-10.0)
[2024-06-15] MEDS: ACETAMINOPHEN 325 MG TABLET (FP) PO PRN (06:46)
[2024-06-15] MEDS: oxyCODONE HCL 5 MG TABLET PO PRN (06:46)
[2024-06-15 08:14] LABS: POTASSIUM 4.7 mmol/L (3.5-5.1)
[2024-06-15 08:16] LABS: CALCIUM 8.7 mg/dL (8.5-10.1)
[2024-06-15 08:17] LABS: ALBUMIN 2.9 g/dl (3.4-5.0); BLOOD UREA NITROGEN 27.2 mg/dL (7-18)
[2024-06-15 08:20] LABS: CREATININE 1.6 mg/dL (0.55-1.3); PHOSPHOROUS 3.1 mg/dL (2.5-4.9)
[2024-06-15 08:22] LABS: BILIRUBIN,TOTAL 0.6 mg/dL (0.2-1)
[2024-06-15] MEDS ORDERED: PATIENT'S OWN MEDICATION (NON-FORMULARY) (Levothyroxine [Synthroid -] 175 MCG Tablet) PO SCH (10:00)
[2024-06-15] MEDS: LEVOTHYROXINE 75 MCG, LEVOTHYROXINE 100 MCG PO SCH (10:29)
[2024-06-15] MEDS: FENOFIBRIC ACID 135 MG CAP PO SCH (10:30)
[2024-06-15] MEDS ORDERED: LIDOCAINE 4% PATCH TP ONE (10:30)
[2024-06-15] MEDS: LISINOPRIL 5 MG TABLET PO SCH (10:30)
[2024-06-15] MEDS: LIDOCAINE 4% PATCH TP SCH (10:35)
[2024-06-15] MEDS ORDERED: traMADol HCL 50 MG TABLET ONE (17:41)
[2024-06-15] MEDS: traMADol HCL 50 MG TABLET PO PRN (17:47)
[2024-06-15] MEDS ORDERED: POLYETHYLENE GLYCOL (HEALTHYLAX) 3350 17 GM PACKET ONE (21:05)
[2024-06-15] MEDS ORDERED: APIXABAN 2.5 MG TABLET ONE (21:05)
[2024-06-15] MEDS: LIDOCAINE PATCH REMOVAL MC SCH (21:21)
[2024-06-16] MEDS ORDERED: traMADol HCL 50 MG TABLET PO PRN ×2 (09:30→10:13)
[2024-06-16] MEDS ORDERED: oxyCODONE HCL 5 MG TABLET ONE (10:11)
[2024-06-16] MEDS: oxyCODONE HCL 5 MG TABLET PO ONE (10:11)
[2024-06-16 16:33] VITALS: RESP 18
[2024-06-16] MEDS: ACETAMINOPHEN 325 MG TABLET (FP) PO PRN (22:03)
[2024-06-17] MEDS: glipiZIDE-XL 2.5 MG TAB.ER.24 PO SCH (07:27)
[2024-06-17 09:09] LABS: POTASSIUM 4.8 mmol/L (3.5-5.1)
[2024-06-17 09:23] LABS: BASO % 0.7 % (0-2.0); EOS % 1.6 % (0-4.5); HEMATOCRIT 29.3 % (35.4-49); HEMOGLOBIN 9.6 GM/dL (11.7-16.9); LYMPH % 19.7 % (8-40); MCH 26.2 pg (25.7-33.7); MCHC 32.8 g/dl (32.0-35.9); MEAN CELL VOLUME 79.8 fl (80-96); MEAN PLT VOLUME 8.6 fl (7.5-11.1); MONO % 9.5 % (3.8-10.2); NEUT % 68.5 % (42.8-82.8); PLATELET COUNT 256 10^3/uL (134-434); RBC 3.67 M/mm3 (4.00-5.60); RDW 16.2 % (11.9-15.9); WHITE BLOOD COUNT 7.9 K/mm3 (4.0-10.0)
[2024-06-17 09:35] LABS: ALBUMIN 2.9 g/dl (3.4-5.0)
[2024-06-17 09:36] LABS: BLOOD UREA NITROGEN 28.2 mg/dL (7-18)
[2024-06-17 09:38] LABS: CREATININE 1.6 mg/dL (0.55-1.3)
[2024-06-17 09:40] LABS: BILIRUBIN,TOTAL 0.7 mg/dL (0.2-1); CALCIUM 8.5 mg/dL (8.5-10.1)
[2024-06-17] MEDS: oxyCODONE HCL 5 MG TABLET PO PRN (15:52)
[2024-06-18 09:55] LABS: BASO % 0.6 % (0-2.0); EOS % 1.6 % (0-4.5); HEMATOCRIT 32.9 % (35.4-49); HEMOGLOBIN 10.4 GM/dL (11.7-16.9); LYMPH % 20.2 % (8-40); MCH 25.8 pg (25.7-33.7); MCHC 31.8 g/dl (32.0-35.9); MEAN CELL VOLUME 81.2 fl (80-96); MEAN PLT VOLUME 8.4 fl (7.5-11.1); MONO % 8.6 % (3.8-10.2); PLATELET COUNT 394 10^3/uL (134-434); RBC 4.05 M/mm3 (4.00-5.60); RDW 16.5 % (11.9-15.9); WHITE BLOOD COUNT 11.7 K/mm3 (4.0-10.0)
[2024-06-18 10:15] LABS: POTASSIUM 4.8 mmol/L (3.5-5.1)
[2024-06-18 10:23] LABS: BLOOD UREA NITROGEN 28.1 mg/dL (7-18); CALCIUM 9.4 mg/dL (8.5-10.1)
[2024-06-18 10:26] LABS: MAGNESIUM 2.2 mg/dL (1.8-2.4)
[2024-06-18 10:27] LABS: BILIRUBIN,TOTAL 0.7 mg/dL (0.2-1)
[2024-06-18 10:29] LABS: CREATININE 1.9 mg/dL (0.55-1.3)
[2024-06-18 10:31] LABS: ALBUMIN 3.2 g/dl (3.4-5.0); TOT PROT 6.6 g/dl (6.4-8.2)
[2024-06-18 16:19] VITALS: BMI 25.2
[2024-06-18 19:53] VITALS: BP 130/72; PULSE 71; TEMP 98.4
== END 2024-06-18 20:44 ==
LOC: JER 14:16 → UNDOADMOB 18:38 → JERBED 18:38 → INTOOBSV 06-16 13:46 → OBSVTOIN 06-16 13:46 → J8W 06-16 14:29 → JERBED 06-16 14:29 → J8W 06-17 14:41
PROVIDERS: ADMIT Internal Medicine; ATTEND Nurse Practitioner Family
PROC: 3E033NZ Introduction of Analgesics, Hypnotics, Sedatives into Peripheral Vein, Percutaneous Approach (ICD-10-PCS; principal; 2024-06-17)
DX: M25.561 Pain in right knee (principal); I48.91 Unspecified atrial fibrillation; I12.9 Hypertensive chronic kidney disease with stage 1 through stage 4 chronic kidney disease, or unspecified chronic kidney disease; L89.152 Pressure ulcer of sacral region, stage 2; Z29.9 Encounter for prophylactic measures, unspecified; E03.9 Hypothyroidism, unspecified; C73 Malignant neoplasm of thyroid gland; M19.90 Unspecified osteoarthritis, unspecified site; E78.5 Hyperlipidemia, unspecified; E11.22 Type 2 diabetes mellitus with diabetic chronic kidney disease; Z79.01 Long term (current) use of anticoagulants
CPT/HCPCS: 36415; 73562-TC-RT-FY; 73700-TC-RT; 80053; 81003; 82962; 83036; 83735; 84100; 84550; 85025; 85610; 85651; 85730; 86140; 87635; 93005; 93010; 96374; 97116-GP; 97161-GP; 99285-25; G0378; J0131

== ENCOUNTER 2024-10-24 10:03 | Observation (INO) | payer OTHER ==
[2024-10-24 11:41] LABS: INR 1.8 (0.83-1.09); PROTHROMBIN TIME (PATIENT) 20.3 SEC (9.7-13.0)
[2024-10-24 11:43] LABS: ACTIVATED PTT 32.2 SECONDS (25.2-36.5)
[2024-10-24 11:49] LABS: POTASSIUM 4.3 mmol/L (3.5-5.1)
[2024-10-24 11:51] LABS: CALCIUM 8.5 mg/dL (8.5-10.1)
[2024-10-24 11:52] LABS: ALBUMIN 2.6 g/dl (3.4-5.0); BLOOD UREA NITROGEN 25.3 mg/dL (7-18); MAGNESIUM 1.9 mg/dL (1.8-2.4)
[2024-10-24 11:55] LABS: CREATININE 2.2 mg/dL (0.55-1.3)
[2024-10-24 11:56] LABS: BASO % 0.4 % (0-2.0); BILIRUBIN,TOTAL 0.5 mg/dL (0.2-1); EOS % 0.4 % (0-4.5); HEMATOCRIT 25.3 % (35.4-49); HEMOGLOBIN 7.7 GM/dL (11.7-16.9); LYMPH % 14.8 % (8-40); MCH 24.6 pg (25.7-33.7); MCHC 30.7 g/dl (32.0-35.9); MEAN CELL VOLUME 80.2 fl (80-96); MEAN PLT VOLUME 7.8 fl (7.5-11.1); MONO % 8.9 % (3.8-10.2); NEUT % 75.5 % (42.8-82.8); PLATELET COUNT 255 10^3/uL (134-434); RBC 3.15 M/mm3 (4.00-5.60); RDW 16.9 % (11.9-15.9); WHITE BLOOD COUNT 5.1 K/mm3 (4.0-10.0)
[2024-10-24 11:57] LABS: TOT PROT 5.6 g/dl (6.4-8.2)
[2024-10-24 12:00] LABS: N-TERMINAL BNP 917.2 pg/ml (5-450)
[2024-10-24 15:16] LABS: RETICULOCYTES 0.87 % (0.5-1.5)
[2024-10-24] MEDS ORDERED: FUROSEMIDE 40 MG/4 ML INJECTABLE VIAL ONE (15:39)
[2024-10-24] MEDS: FUROSEMIDE 40 MG/4 ML INJECTABLE VIAL IVPUSH ONE (15:55)
[2024-10-24] MEDS: DRONEDARONE HCL 400 MG TAB (FP) PO SCH (22:35)
[2024-10-24] MEDS: APIXABAN 2.5 MG TABLET PO SCH (22:36)
[2024-10-25] MEDS: LEVOTHYROXINE 100 MCG, LEVOTHYROXINE 75 MCG PO SCH (06:01)
[2024-10-25] MEDS: LISINOPRIL 5 MG TABLET PO SCH (09:05)
[2024-10-25 09:19] LABS: HEMATOCRIT 25.6 % (35.4-49); HEMOGLOBIN 7.8 GM/dL (11.7-16.9); MCH 24.3 pg (25.7-33.7); MCHC 30.4 g/dl (32.0-35.9); MEAN CELL VOLUME 79.8 fl (80-96); MEAN PLT VOLUME 7.9 fl (7.5-11.1); PLATELET COUNT 263 10^3/uL (134-434); RDW 16.3 % (11.9-15.9)
[2024-10-25 09:32] LABS: POTASSIUM 4.1 mmol/L (3.5-5.1)
[2024-10-25 09:34] LABS: ALBUMIN 2.9 g/dl (3.4-5.0); CALCIUM 8.6 mg/dL (8.5-10.1)
[2024-10-25 09:35] LABS: BLOOD UREA NITROGEN 27.8 mg/dL (7-18); MAGNESIUM 1.9 mg/dL (1.8-2.4)
[2024-10-25 09:38] LABS: CREATININE 2.1 mg/dL (0.55-1.3); PHOSPHOROUS 2.9 mg/dL (2.5-4.9)
[2024-10-25 09:39] LABS: BILIRUBIN,TOTAL 0.7 mg/dL (0.2-1)
[2024-10-25] MEDS ORDERED: PATIENT'S OWN MEDICATION (NON-FORMULARY) (Levothyroxine [Synthroid -] 175 MCG Tablet) PO SCH (10:00)
[2024-10-25] MEDS: FUROSEMIDE 40 MG/4 ML INJECTABLE VIAL IVPUSH SCH (10:01)
[2024-10-25] MEDS: FENOFIBRIC ACID 135 MG CAP PO SCH (12:49)
[2024-10-25] MEDS: IRON SUCROSE INJECTION 200 MG in SODIUM CHLORIDE 100 ML IVPB ONE (14:24)
[2024-10-25 15:28] LABS: EPI CELLS 3 /uL (0-25.1); HYALINE CASTS 1 /uL (0-3.1); PH,URINE 5.5 (5.0-8.0); URINE APPEARANCE CLEAR; URINE BACTERIA 2 /uL (0-1359); URINE BILIRUBIN NEGATIVE (NEGATIVE); URINE COLOR YELLOW; URINE GLUCOSE (UA) NEGATIVE (NEGATIVE); URINE KETONE NEGATIVE (NEGATIVE); URINE LEUK ESTERASE TRACE (NEGATIVE); URINE NITRITE NEGATIVE (NEGATIVE); URINE PROTEIN NEGATIVE (NEGATIVE); URINE RBC 13 /uL (0-23.9); URINE UROBILINOGEN 0.2 mg/dL (0.2-1.0); URINE WBC 15 /uL (0-25.8)
[2024-10-25 20:20] VITALS: RESP 18
[2024-10-26 08:10] VITALS: TEMP 98.2
[2024-10-26 08:57] LABS: HEMATOCRIT 23.2 % (35.4-49); HEMOGLOBIN 7.2 GM/dL (11.7-16.9); MCH 24.6 pg (25.7-33.7); MCHC 30.9 g/dl (32.0-35.9); MEAN CELL VOLUME 79.6 fl (80-96); MEAN PLT VOLUME 7.8 fl (7.5-11.1); PLATELET COUNT 235 10^3/uL (134-434); RBC 2.91 M/mm3 (4.00-5.60); RDW 16.7 % (11.9-15.9); WHITE BLOOD COUNT 4.8 K/mm3 (4.0-10.0)
[2024-10-26 09:22] LABS: POTASSIUM 3.7 mmol/L (3.5-5.1)
[2024-10-26 09:26] LABS: ALBUMIN 2.6 g/dl (3.4-5.0); CALCIUM 8.4 mg/dL (8.5-10.1)
[2024-10-26 09:27] LABS: BLOOD UREA NITROGEN 26.6 mg/dL (7-18); MAGNESIUM 1.8 mg/dL (1.8-2.4)
[2024-10-26 09:29] LABS: CREATININE 1.9 mg/dL (0.55-1.3); PHOSPHOROUS 2.7 mg/dL (2.5-4.9)
[2024-10-26 09:31] LABS: BILIRUBIN,TOTAL 0.5 mg/dL (0.2-1); TOT PROT 5.4 g/dl (6.4-8.2)
[2024-10-26 11:11] VITALS: BMI 24.8
[2024-10-26 11:17] VITALS: BP 129/68; PULSE 72
[2024-10-26] MEDS: IRON SUCROSE INJECTION 200 MG in SODIUM CHLORIDE 100 ML IVPB ONE (13:15)
[2024-10-27] MEDS ORDERED: FUROSEMIDE 40 MG TABLET (FP) PO SCH (10:00)
== END 2024-10-26 16:53 | disposition home or self-care (01) ==
LOC: JER 10:03 → INTOOBSV 12:27 → JERBED 12:27 → J6S 17:37
PROVIDERS: ADMIT Internal Medicine; ATTEND Internal Medicine
PROC: 3E033GC Introduction of Other Therapeutic Substance into Peripheral Vein, Percutaneous Approach (ICD-10-PCS; principal; 2024-10-24)
DX: I48.91 Unspecified atrial fibrillation (principal); I87.2 Venous insufficiency (chronic) (peripheral); Z79.01 Long term (current) use of anticoagulants; I12.9 Hypertensive chronic kidney disease with stage 1 through stage 4 chronic kidney disease, or unspecified chronic kidney disease; E11.22 Type 2 diabetes mellitus with diabetic chronic kidney disease; N18.9 Chronic kidney disease, unspecified; Z99.2 Dependence on renal dialysis; E03.9 Hypothyroidism, unspecified; D64.9 Anemia, unspecified
CPT/HCPCS: 0241U-QW; 36415; 71045-TC-FY; 71250-TC; 76775-TC; 80053; 81003; 82570; 83540; 83550; 83735; 83880; 84100; 84540; 85025; 85027; 85045; 85610; 85730; 93005; 93010; 93306-TC; 96365; 96375; 96376; 99285-25; G0378; J1756

== ENCOUNTER 2024-11-28 20:05 | Inpatient (IN) | payer OTHER ==
[2024-11-28 21:45] LABS: BASO % 0.2 % (0-2.0); EOS % 0.1 % (0-4.5); HEMOGLOBIN 8.1 GM/dL (11.7-16.9); LYMPH % 7.3 % (8-40); MCH 25.4 pg (25.7-33.7); MCHC 31.1 g/dl (32.0-35.9); MEAN CELL VOLUME 81.5 fl (80-96); MEAN PLT VOLUME 7.7 fl (7.5-11.1); MONO % 7.1 % (3.8-10.2); NEUT % 85.3 % (42.8-82.8); PLATELET COUNT 261 10^3/uL (134-434); RBC 3.19 M/mm3 (4.00-5.60); RDW 21.4 % (11.9-15.9); WHITE BLOOD COUNT 13.5 K/mm3 (4.0-10.0)
[2024-11-28] MEDS: SODIUM CHLORIDE 0.9% 500 ML INFUS.BAG IV ONE ×2 (21:53)
[2024-11-28 22:11] LABS: INR 1.5 (0.83-1.09); PROTHROMBIN TIME (PATIENT) 16.8 SEC (9.7-13.0)
[2024-11-28 22:12] LABS: POTASSIUM 4.7 mmol/L (3.5-5.1)
[2024-11-28 22:13] LABS: ACTIVATED PTT 30.4 SECONDS (25.2-36.5)
[2024-11-28 22:14] LABS: CALCIUM 8.5 mg/dL (8.5-10.1)
[2024-11-28 22:15] LABS: ALBUMIN 2.5 g/dl (3.4-5.0); BLOOD UREA NITROGEN 53.4 mg/dL (7-18); MAGNESIUM 2.3 mg/dL (1.8-2.4)
[2024-11-28 22:18] LABS: CREATININE 3.7 mg/dL (0.55-1.3); PHOSPHOROUS 3.1 mg/dL (2.5-4.9)
[2024-11-28 22:19] LABS: BILIRUBIN,TOTAL 1.6 mg/dL (0.2-1); TOT PROT 5.7 g/dl (6.4-8.2)
[2024-11-28 22:23] LABS: N-TERMINAL BNP 6483.4 pg/ml (5-450)
[2024-11-28 22:29] LABS: ANISOCYTOSIS 3+; MACROCYTOSIS 0; OVALOCYTE 1+; TARGET CELLS 1+
[2024-11-28] MEDS: SODIUM CHLORIDE 500 ML IV STA (23:14)
[2024-11-29] MEDS: FOLIC ACID INJECTION - 1 MG, THIAMINE HCL 100 MG, MULTIVIT INJECTION ADULT 10 ML in SOD... IVPB ONE (00:25)
[2024-11-29] MEDS: SODIUM CHLORIDE 1,000 ML IV SCH (06:32)
[2024-11-29 07:54] LABS: BASO % 0.3 % (0-2.0); HEMOGLOBIN 7.9 GM/dL (11.7-16.9); LYMPH % 10.2 % (8-40); MCH 25.9 pg (25.7-33.7); MCHC 31.4 g/dl (32.0-35.9); MEAN CELL VOLUME 82.4 fl (80-96); MEAN PLT VOLUME 8.5 fl (7.5-11.1); MONO % 7.7 % (3.8-10.2); NEUT % 81.8 % (42.8-82.8); PLATELET COUNT 238 10^3/uL (134-434); RBC 3.04 M/mm3 (4.00-5.60); RDW 21.5 % (11.9-15.9); WHITE BLOOD COUNT 10.7 K/mm3 (4.0-10.0)
[2024-11-29 08:09] LABS: POTASSIUM 4.5 mmol/L (3.5-5.1)
[2024-11-29 08:12] LABS: ALBUMIN 2.2 g/dl (3.4-5.0); BLOOD UREA NITROGEN 60.8 mg/dL (7-18); CALCIUM 8.1 mg/dL (8.5-10.1); MAGNESIUM 2.3 mg/dL (1.8-2.4)
[2024-11-29 08:15] LABS: CREATININE 3.6 mg/dL (0.55-1.3); PHOSPHOROUS 3.8 mg/dL (2.5-4.9)
[2024-11-29 08:17] LABS: BILIRUBIN,TOTAL 1.5 mg/dL (0.2-1); TOT PROT 5.2 g/dl (6.4-8.2)
[2024-11-29] MEDS: DRONEDARONE HCL 400 MG TAB (FP) PO ONE (08:25)
[2024-11-29] MEDS: LEVOTHYROXINE 100 MCG, LEVOTHYROXINE 75 MCG PO SCH (08:25)
[2024-11-29] MEDS ORDERED: PATIENT'S OWN MEDICATION (NON-FORMULARY) (Levothyroxine [Synthroid -] 175 MCG Tablet) PO SCH (10:00)
[2024-11-29 10:19] LABS: EPI CELLS 10 /uL (0-25.1); HYALINE CASTS 6 /uL (0-3.1); URINE APPEARANCE CLOUDY; URINE BACTERIA 6 /uL (0-1359); URINE BILIRUBIN 1+ (NEGATIVE); URINE COLOR DK YELLOW; URINE GLUCOSE (UA) NEGATIVE (NEGATIVE); URINE KETONE TRACE (NEGATIVE); URINE LEUK ESTERASE 2+ (NEGATIVE); URINE NITRITE NEGATIVE (NEGATIVE); URINE PROTEIN TRACE (NEGATIVE); URINE WBC 154 /uL (0-25.8)
[2024-11-29 10:41] LABS: URINE RBC 62 /uL (0-23.9); YEAST NOT PRESENT (NEGATIVE)
[2024-11-29] MEDS: APIXABAN 2.5 MG TABLET PO SCH (12:16)
[2024-11-29] MEDS ORDERED: CEFTRIAXONE 1 G/50 ML PREMIX 50 ML IVPB ONE (16:41)
[2024-11-29] MEDS: CEFTRIAXONE 1 G/50 ML PREMIX 50 ML IVPB SCH (16:51)
[2024-11-29] MEDS: FUROSEMIDE 40 MG/4 ML INJECTABLE VIAL IVPUSH ONE (16:51)
[2024-11-29] MEDS: INSULIN ASPART SLIDING SCALE (NOVOLOG) 1 VIAL SQ SCH (18:00)
[2024-11-29] MEDS ORDERED: INSULIN ASPART SLIDING SCALE (NOVOLOG) 1 VIAL SQ ONE ×2 (18:09→18:12)
[2024-11-29] MEDS: DRONEDARONE HCL 400 MG TAB (FP) PO SCH (22:13)
[2024-11-29] MEDS: CHLORHEXIDINE GLUCONATE 4% CLEANSER FOR DECOLONIZATION TP SCH (22:13)
[2024-11-29] MEDS: MUPIROCIN 2% TOPICAL OINTMENT FOR DECOLONIZATION NS SCH (22:13)
[2024-11-29] MEDS: DIGOXIN 0.5 MG/2 ML AMPUL IVPUSH ONE (23:42)
[2024-11-30] MEDS ORDERED: PHENYLEPHRINE HCL 10 MG/1 ML SINGLE DOSE VIAL ONE (03:51)
[2024-11-30] MEDS: PHENYLEPHRINE NS PREMIX 50,000 MCG/500 ML BAG CVP SCH (04:00)
[2024-11-30] MEDS: LEVOTHYROXINE 100 MCG, LEVOTHYROXINE 75 MCG PO SCH (06:01)
[2024-11-30] MEDS: INSULIN ASPART SLIDING SCALE (NOVOLOG) 1 VIAL SQ SCH (06:01)
[2024-11-30 08:15] LABS: BASO % 0.2 % (0-2.0); HEMATOCRIT 26.8 % (35.4-49); HEMOGLOBIN 8.5 GM/dL (11.7-16.9); LYMPH % 9.4 % (8-40); MCH 25.8 pg (25.7-33.7); MCHC 31.5 g/dl (32.0-35.9); MEAN CELL VOLUME 81.8 fl (80-96); MEAN PLT VOLUME 8.4 fl (7.5-11.1); NEUT % 84.4 % (42.8-82.8); PLATELET COUNT 394 10^3/uL (134-434); RBC 3.28 M/mm3 (4.00-5.60); RDW 21.5 % (11.9-15.9); WHITE BLOOD COUNT 15.7 K/mm3 (4.0-10.0)
[2024-11-30] MEDS: ALBUTEROL SO4 2.5/IPRATROPIUM 0.5 INH SOL 3 ML VIAL.NEB. NEB SCH (08:19)
[2024-11-30 08:31] LABS: POTASSIUM 4.6 mmol/L (3.5-5.1)
[2024-11-30 08:37] LABS: ALBUMIN 2.1 g/dl (3.4-5.0); BLOOD UREA NITROGEN 71.2 mg/dL (7-18); CALCIUM 8.1 mg/dL (8.5-10.1); MAGNESIUM 2.4 mg/dL (1.8-2.4)
[2024-11-30 08:40] LABS: CREATININE 3.5 mg/dL (0.55-1.3); PHOSPHOROUS 3.7 mg/dL (2.5-4.9)
[2024-11-30 08:41] LABS: TOT PROT 5.2 g/dl (6.4-8.2)
[2024-11-30] MEDS: CEFTRIAXONE 1 G/50 ML PREMIX 50 ML IVPB SCH (09:36)
[2024-11-30] MEDS: PANTOPRAZOLE SODIUM 40 MG VIAL IVPUSH SCH (09:40)
[2024-11-30] MEDS: APIXABAN 2.5 MG TABLET PO SCH (09:41)
[2024-11-30] MEDS: MUPIROCIN 2% TOPICAL OINTMENT FOR DECOLONIZATION NS SCH (09:43)
[2024-11-30] MEDS: DRONEDARONE HCL 400 MG TAB (FP) PO SCH (09:44)
[2024-11-30] MEDS: FUROSEMIDE INJECTION 100 MG in DEXTROSE 5%-WATER - 40 ML IVPB SCH (12:35)
[2024-11-30] MEDS ORDERED: INSULIN ASPART SLIDING SCALE (NOVOLOG) 1 VIAL SQ ONE (21:19)
[2024-11-30] MEDS: CHLORHEXIDINE GLUCONATE 4% CLEANSER FOR DECOLONIZATION TP SCH (22:10)
[2024-11-30] MEDS: MELATONIN 5 MG TABLETS PO ONE (22:10)
[2024-12-01 09:10] LABS: ALLENS TEST POSITIVE; ARTERIAL BLD GAS O2 SATURATION 98.2 % (95-98); ARTERIAL BLOOD GAS BASE EXCESS 0.3 mmol/L (-2-2); ARTERIAL BLOOD GAS PO2 107.8 mmHg (80-100); ARTERIAL BLOOD GAS pH 7.465 (7.350-7.450)
[2024-12-01] MEDS ORDERED: CEFTRIAXONE 1 G/50 ML PREMIX 50 ML IVPB SCH (10:00)
[2024-12-01] MEDS: CEFTRIAXONE 1 G/50 ML PREMIX 50 ML IVPB SCH (10:06)
[2024-12-01 10:10] LABS: BASO % 0.3 % (0-2.0); HEMATOCRIT 27.6 % (35.4-49); HEMOGLOBIN 8.8 GM/dL (11.7-16.9); LYMPH % 10.1 % (8-40); MCH 26.2 pg (25.7-33.7); MCHC 31.8 g/dl (32.0-35.9); MEAN CELL VOLUME 82.2 fl (80-96); MEAN PLT VOLUME 7.8 fl (7.5-11.1); MONO % 4.7 % (3.8-10.2); NEUT % 84.9 % (42.8-82.8); PLATELET COUNT 376 10^3/uL (134-434); RBC 3.36 M/mm3 (4.00-5.60); RDW 21.6 % (11.9-15.9); WHITE BLOOD COUNT 15.5 K/mm3 (4.0-10.0)
[2024-12-01 10:48] LABS: POTASSIUM 4.1 mmol/L (3.5-5.1)
[2024-12-01 10:59] LABS: BLOOD UREA NITROGEN 74.8 mg/dL (7-18)
[2024-12-01 11:00] LABS: CREATININE 3.2 mg/dL (0.55-1.3)
[2024-12-01 11:03] LABS: PHOSPHOROUS 3.6 mg/dL (2.5-4.9)
[2024-12-01 11:05] LABS: CALCIUM 8.2 mg/dL (8.5-10.1); MAGNESIUM 2.5 mg/dL (1.8-2.4)
[2024-12-01 11:27] LABS: BILIRUBIN,TOTAL 0.9 mg/dL (0.2-1)
[2024-12-01] MEDS ORDERED: DIGOXIN 0.25 MG TABLET PO SCH (12:30)
[2024-12-01 15:35] VITALS: BMI 24.2
[2024-12-01] MEDS: PHENYLEPHRINE NS PREMIX 50,000 MCG/500 ML BAG CVP SCH (23:10)
[2024-12-02] MEDS: LACTATED RINGERS SOLUTION 1000 ML INFUS.BAG IV ONE (01:45)
[2024-12-02 06:52] LABS: HEMATOCRIT 26.7 % (35.4-49); HEMOGLOBIN 8.1 GM/dL (11.7-16.9); MCH 25.2 pg (25.7-33.7); MCHC 30.4 g/dl (32.0-35.9); PLATELET COUNT 403 10^3/uL (134-434); RBC 3.22 M/mm3 (4.00-5.60); RDW 21.7 % (11.9-15.9); WHITE BLOOD COUNT 22.2 K/mm3 (4.0-10.0)
[2024-12-02 07:31] LABS: POTASSIUM 4.3 mmol/L (3.5-5.1)
[2024-12-02 07:33] LABS: CALCIUM 7.8 mg/dL (8.5-10.1)
[2024-12-02 07:34] LABS: ALBUMIN 1.7 g/dl (3.4-5.0); BLOOD UREA NITROGEN 81.1 mg/dL (7-18); MAGNESIUM 2.2 mg/dL (1.8-2.4)
[2024-12-02 07:37] LABS: CREATININE 3.2 mg/dL (0.55-1.3); PHOSPHOROUS 3.7 mg/dL (2.5-4.9)
[2024-12-02 07:39] LABS: BILIRUBIN,TOTAL 0.8 mg/dL (0.2-1); TOT PROT 4.5 g/dl (6.4-8.2)
[2024-12-02] MEDS ORDERED: DIGOXIN 0.25 MG TABLET PO ONE (10:36)
[2024-12-02] MEDS: DIGOXIN 0.125 MG TABLET PO ONE (12:39)
[2024-12-02] MEDS ORDERED: DEXTROSE 50%-WATER 25 GM/50 ML DISP.SYRIN ONE (21:19)
[2024-12-02] MEDS: DEXTROSE 50%-WATER - 25 GM/50 ML VIAL IVPUSH ONE (21:24)
[2024-12-02 22:17] VITALS: RESP 19
[2024-12-02] MEDS: ALBUMIN HUMAN 25% 12.5 GM/50 ML VIAL IV ONE (23:01)
[2024-12-02 23:28] LABS: ARTERIAL BLD GAS O2 SATURATION 86.1 % (95-98); ARTERIAL BLOOD GAS BASE EXCESS -10.5 mmol/L (-2-2); ARTERIAL BLOOD GAS PO2 69.2 mmHg (80-100)
[2024-12-02 23:30] LABS: ARTERIAL BLOOD GAS pH 7.094 (7.350-7.450)
[2024-12-03 02:44] VITALS: BP 91/44; PULSE 60; TEMP 97.8
[2024-12-03] MEDS ORDERED: ALBUMIN HUMAN 25% 12.5 GM/50 ML VIAL IV ONE (03:15)
== END 2024-12-03 03:55 | disposition expired | DRG 291 ==
LOC: JER 20:05 → JERBED 11-29 03:49 → JICU 11-29 21:23
PROVIDERS: ADMIT Internal Medicine; ATTEND Internal Medicine Pulmonary Disease
DX: I13.0 Hypertensive heart and chronic kidney disease with heart failure and stage 1 through stage 4 chronic kidney disease, or unspecified chronic kidney disease (principal); I50.33 Acute on chronic diastolic (congestive) heart failure; R65.21 Severe sepsis with septic shock; J18.9 Pneumonia, unspecified organism; J96.01 Acute respiratory failure with hypoxia; N17.9 Acute kidney failure, unspecified; N39.0 Urinary tract infection, site not specified; I24.89 Other forms of acute ischemic heart disease; M62.82 Rhabdomyolysis; E87.3 Alkalosis; I48.92 Unspecified atrial flutter; E87.0 Hyperosmolality and hypernatremia; E11.22 Type 2 diabetes mellitus with diabetic chronic kidney disease; N18.9 Chronic kidney disease, unspecified; E03.9 Hypothyroidism, unspecified; R31.9 Hematuria, unspecified; D50.9 Iron deficiency anemia, unspecified; I48.91 Unspecified atrial fibrillation; I46.9 Cardiac arrest, cause unspecified; R15.9 Full incontinence of feces; E78.1 Pure hyperglyceridemia; I71.20 Thoracic aortic aneurysm, without rupture, unspecified; W18.30XA Fall on same level, unspecified, initial encounter; Y92.090 Kitchen in other non-institutional residence as the place of occurrence of the external cause; Y99.9 Unspecified external cause status; Z85.850 Personal history of malignant neoplasm of thyroid
CPT/HCPCS: 0241U-QW; 36415; 36600; 70450-TC; 71045-TC-FY; 72125-TC; 76604; 76775-TC; 80053; 80162; 81003; 82550; 82553; 82803; 82962; 83036; 83735; 83880; 84100; 84443; 84484; 85025; 85027; 85610; 85730; 87040; 87086; 87481; 87899; 93005; 93010; 93308; 94640; 94660; 97162-GP; 99285-25; P9047